=== PATIENT | male | born 1990 ===

== ENCOUNTER 2017-04-28 20:44 | Emergency (ER) | payer OTHER ==
[2017-04-28] MEDS ORDERED: Tetanus/Diphtheria Toxoids 0.5 ml Syringe IM ONE ×2 (22:21→22:28)
[2017-04-28] MEDS ORDERED: Lidocaine 1% Inj (20ml) ONE (23:17)
[2017-04-28] MEDS ORDERED: Bacitracin 500 Units/gm Oint Foilpak UD ONE (23:44)
[2017-04-28 23:48] VITALS: BP 114/72; PULSE 84; RESP 18; TEMP 97.6
[2017-04-28 23:53] VITALS: O2SAT 98
--- NOTE | 2017-04-28 23:53 | C.PDOC ---
History Of Present Illness 26 year old male presents to the ED for evaluation of right hand injury. Patient reports that he punched a car window earlier this evening and sustained a laceration to his hand. He now complains of pain with movement of fingers. He denies numbness or weakness. Time Seen by Provider: 04/28/17 21:54 Chief Complaint (Nursing): Finger,Hand,&Wrist History Per: Patient History/Exam Limitations: no limitations Onset/Duration Of Symptoms: Hrs Current Symptoms Are (Timing): Still Present Exacerbating Factor(s): Movement Recent travel outside of the [place]: No Past Medical History Reviewed: Historical Data, Nursing Documentation, Vital Signs Vital Signs: Last Vital Signs Temp 97.6 F 04/28/17 23:48 Pulse 84 04/28/17 23:48 Resp 18 04/28/17 23:48 BP 114/72 04/28/17 23:48 Pulse Ox 98 04/29/17 01:04 Family History: States: No Known Family Hx - Social History Hx Alcohol Use: No Hx Substance Use: No - Immunization History Hx Tetanus Toxoid Vaccination: No Hx Influenza Vaccination: No Hx Pneumococcal Vaccination: No Review Of Systems Constitutional: Negative for: Fever, Chills Cardiovascular: Negative for: Chest Pain Respiratory: Negative for: Cough, Shortness of Breath Gastrointestinal: Negative for: Nausea, Vomiting Musculoskeletal: Positive for: Hand Pain Skin: Positive for: Other (Laceration). Negative for: Rash Neurological: Negative for: Headache Physical Exam - Physical Exam Appears: Non-toxic, No Acute Distress Skin: Normal Color, Warm, Dry Head: Atraumatic, Normacephalic Eye(s): bilateral: Normal Inspection, PERRL Neck: Normal ROM, Supple Back: Normal Inspection Extremity: Normal ROM, No Swelling, Other (Stellate laceration to 3rd MCP with tenderness, no visualized or palpable foreign body, capillary refill intact, good pulses, strength and sensation normal) Neurological/Psych: Oriented x3 ED Course And Treatment O2 Sat by Pulse Oximetry: 98 - Other Rad Right Hand Xray X-Ray: Interpreted by Me, Viewed By Me, Read By Radiologist Interpretation: No fracture or dislocation Progress Note: Laceration repaired. Patient tolerated procedure well. Patient instructed on wound care and will follow up for suture removal in 8-10 days. Will discharge home. Laceration - Laceration Repair Hand laceration Wound Length (In cm): 1 cm Description Of Wound: Stellate Wound Cleansed With: Sterile Saline Anesthesia: Lidocaine 1% Wound Examination: Irrigated With Saline, No FB With Wound Exploration Wound Closure: Suture (3) Suture Technique And Material Used: Nylon (4-0) Disposition Counseled Patient/Family Regarding: Diagnosis, Need For Followup - Disposition Referrals: at [facility] [Outside] Disposition: HOME/ ROUTINE Disposition Time: 23:48 Condition: STABLE Additional Instructions: follow up with PMD Keep wound clean/ Apply bacitracin ointment Suture removal in 8-10 days Return to ER if worse Instructions: Laceration Repair With Stitches (DC) Forms: Petta (Iranian) - Clinical Impression Clinical Impression: Hand laceration - Scribe Statement The provider has reviewed the documentation as recorded by the Scribe (Nitin Zepeda) All medical record entries made by the Scribe were at my direction and personally dictated by me. I have reviewed the chart and agree that the record accurately reflects my personal performance of the history, physical exam, medical decision making, and the department course for this patient. I have also personally directed, reviewed, and agree with the discharge instructions and disposition.
--- NOTE | 2017-04-29 10:25 | RAD ---
PROCEDURE: Right Hand Radiographs. HISTORY: trauma, pain and swelling, Lac on 3rd MCP COMPARISON: None available. FINDINGS: BONES: No acute displaced fracture. JOINTS: No dislocation. SOFT TISSUES: Soft tissue swelling. No evidence of radiopaque foreign body. OTHER FINDINGS: None. IMPRESSION: Soft tissue swelling. No acute displaced fracture, dislocation, or significant joint effusion identified. If symptoms persist, or if there is continued clinical concern, x-ray follow-up in 7-10 days should be considered.
== END 2017-04-28 23:59 | disposition home or self-care (01) ==
LOC: C.ER 20:44
DX: S61.411A Laceration without foreign body of right hand, initial encounter (principal); W22.8XXA Striking against or struck by other objects, initial encounter; Z23 Encounter for immunization